=== PATIENT | male | born 1995 | race Caucasian/White ===

== ENCOUNTER 2021-02-26 10:38 | Emergency (ER) | payer OTHER ==
[2021-02-26 11:25] LABS: HEMOGLOBIN 16.3 gm/dl (14.0-17.5); RED BLOOD COUNT 5.29 M/UL (4.20-5.50); WHITE BLOOD COUNT 7.1 K/UL (4.5-11.0)
[2021-02-26 11:48] LABS: BUN/CREATININE RATIO 16 (0-10)
[2021-02-26] MEDS ORDERED: NORFLEX 100 MG100 MG PO (13:54)
[2021-02-26] MEDS ORDERED: IBUPROFEN600 MG PO (13:54)
== END 2021-02-26 14:04 | disposition home or self-care (01) ==
LOC: ER1 10:38
PROVIDERS: Physician Assistant Medical
DX: S40.012A Contusion of left shoulder, initial encounter (principal); F17.290 Nicotine dependence, other tobacco product, uncomplicated; V49.9XXA Car occupant (driver) (passenger) injured in unspecified traffic accident, initial encounter
CPT/HCPCS: 70450; 71260; 72125; 73060; 80053; 85025; 99284; Q9967